=== PATIENT | male | born 1990 | race African-American/Black ===

== ENCOUNTER 2022-11-21 01:53 | Emergency (ER) | payer BC ==
[~2022-11-21] VITALS: Ht 195.6 cm; Wt 123.8 kg
[2022-11-21] MEDS ORDERED: TDAP [DIPH/PERTUSSIS/TET] 0.5 ML VIAL IM ONE ×3 (02:09→02:35)
--- NOTE | 2022-11-21 02:10 | NUR ---
PT BIBFAMILY C/O SYNCOPAL EPISODE AROUND 0130 WHEN GETTING UP AND USING THE BATHROOM. PT HIS CHIN ON CORNER OF A TABLE. PT [id number] BREATHING EVENLY AND UNLABORED. PT ATTACHED TO MONITOR AND POX. AT BEDSIDE
[2022-11-21] MEDS: TDAP [DIPH/PERTUSSIS/TET] 0.5 ML VIAL IM ONE ×2 (02:12→02:43)
--- NOTE | 2022-11-21 02:14 | NUR ---
PT REFUSED TDAP SHOT.
--- NOTE | 2022-11-21 02:16 | NUR ---
EMT AT BEDSIDE FOR EKG
--- NOTE | 2022-11-21 02:23 | NUR ---
LAB AT BEDSIDE
[2022-11-21 02:30] LABS: BASOPHILS % (AUTO) 0.1 % (0.0-2.0); EOSINOPHILS % (AUTO) 3.4 % (0.0-6.0); HEMATOCRIT 42 % (39-51); HEMOGLOBIN 13.7 g/dL (13.5-17.5); LYMPHOCYTES # (AUTO) 2.2 K/uL (0.8-4.8); LYMPHOCYTES % (AUTO) 26.7 % (20.0-44.0); MEAN CORPUSCULAR HGB CONC 33 g/dl (31.0-36.0); MEAN CORPUSCULAR VOLUME 85 fL (80-96); MONOCYTES # (AUTO) 0.6 K/uL (0.1-1.30); MONOCYTES % (AUTO) 7.8 % (2.0-12.0); NEUTROPHILS # (AUTO) 5.1 K/uL (1.8-8.9); PLATELET COUNT (AUTO) 222 K/uL (150-450); RED BLOOD CELL COUNT(AUTO) 4.93 MIL/uL (4.5-6.0); WHITE BLOOD COUNT (AUTO) 8.2 K/uL (4.3-11.0)
[2022-11-21] MEDS ORDERED: LIDOCAINE HCL/PF 1% 30 ML SDV ONE (02:37)
[2022-11-21 02:39] LABS: CALCIUM, SERUM 8.8 mg/dL (8.5-10.1); CREATININE 1.1 mg/dL (0.6-1.3); POTASSIUM 3.7 mmol/L (3.5-5.1)
--- NOTE | 2022-11-21 02:45 | NUR ---
Pt remain alert, resposive as 0.5mg IM off the Tdap given after he agreed and requested to take the Tdap 0.5mg IM now. Pt care continue.
--- NOTE | 2022-11-21 02:48 | NUR ---
MD AT BEDSIDE FOR SUTURES
--- NOTE | 2022-11-21 03:33 | NUR ---
Pt is noted off the unit to CT. Pt care continue.
--- NOTE | 2022-11-21 03:33 | NUR ---
PT TAKEN TO CT VIA [facility]
--- NOTE | 2022-11-21 03:44 | NUR ---
PT RETURNED TO ER BED [address]
--- NOTE | 2022-11-21 04:24 | NUR ---
CALLED [facility] TO HAVE IMAGES READ, PER TECH, READ TIMES ARE UP TO 2.5 HOURS
--- NOTE | 2022-11-21 04:55 | NUR ---
Patient does not wish to proceed with medical care recommended by Dr. Cleaning. Patient given information related to possible complications, up to and including , which could occur as a result of leaving the hospital at this time. Patient verbalizes understanding of risks involved due to leaving against medical advice. Patient has signed AMA form. PT ambulatory with a steady gait
[2022-11-21 05:30] VITALS: BP 116/79
== END 2022-11-21 04:55 | disposition left against medical advice (07) ==
LOC: ER 01:57
DX: S01.81XA Laceration without foreign body of other part of head, initial encounter (principal); R55 Syncope and collapse; W18.30XA Fall on same level, unspecified, initial encounter; Y93.89 Activity, other specified; Y92.89 Other specified places as the place of occurrence of the external cause; Y99.8 Other external cause status
CPT/HCPCS: 99285; 70450; 12011; 90471; 90715; 85025; 80048; 36415; 93005; J3490